=== PATIENT | male | born 2000 | race Two or more races ===

== ENCOUNTER 2021-01-01 14:34 | Emergency (ER) | payer BC ==
[~2021-01-01] VITALS: Ht 190.5 cm; Wt 72.4 kg
[2021-01-01 14:37] VITALS: BP 155/90
--- NOTE | 2021-01-01 14:51 | NUR ---
ASSUMED CARE OF PT. COVID SHOT ON SUNDAY, EYE PAIN SUNDAY NIGHT WITH MIGRAINE AND OTHER SX. PT HAS BILATERAL EYE PAIN AND HURTS TO MOVE EYE ANYWHERE BUT STRAIGHT. STILL HAS MIGRAINE.
[2021-01-01] MEDS ORDERED: PROPARACAINE OPHTH 0.5%, 15ML EACHEYE ONE (15:00)
[2021-01-01] MEDS ORDERED: FLUORESCEIN OPHTHALMIC 1 MG STRIP EACHEYE ONE (15:00)
[2021-01-01] MEDS ORDERED: FLUORESCEIN OPHTHALMIC 1 MG STRIP ONE (15:01)
[2021-01-01] MEDS ORDERED: PROPARACAINE OPHTH 0.5%, 15ML ONE (15:02)
--- NOTE | 2021-01-01 15:04 | NUR ---
VISUAL ACUITIES DONE AND SHOWN TO DR. [place].
== END 2021-01-01 16:18 | disposition home or self-care (01) ==
LOC: ED 16:02
DX: H10.233 Serous conjunctivitis, except viral, bilateral (principal)
CPT/HCPCS: 99283